=== PATIENT | male | born 1945 | race Caucasian/White ===

== ENCOUNTER → 2020-05-27 12:47 | Outpatient (CLI) | payer MEDICARE, OTHER, SELFPAY ==
--- NOTE | ~2020-05-27 | XR_ITS ---
EXAMINATION: XR chest 2V DATE: 05/27/2020 13:26 INDICATION: Shortness of breath. TECHNIQUE: Frontal and lateral views of the chest were obtained. COMPARISON: CT abdomen and pelvis 04/19/2016 FINDINGS: A calcified left lung nodule is consistent with old granulomatous disease. No pleural effus ion or pneumothorax. The heart size is normal. There are 2 chronic compression fractures in the thora cic spine with changes of vertebroplasty. IMPRESSION: 1. No acute cardiopulmonary disease. Reviewed, dictated and finalized at location A.
== END ==
PROVIDERS: PCP Physician Assistant; Visit Provider Physician Assistant
DX: R06.02 Shortness of breath (principal)
CPT/HCPCS: 71046

== ENCOUNTER → 2020-12-02 09:48 | Outpatient (CLI) | payer MEDICARE, SELFPAY ==
--- NOTE | ~2020-12-02 | XR_ITS ---
EXAMINATION: XR foot LT min 3V DATE: 12/02/2020 10:04 INDICATION: Left foot pain TECHNIQUE: Dorsoplantar, two oblique and lateral views of the left foot were obtained. COMPARISON: None. FINDINGS: Alignment is normal. No fracture. Mild polyarticular osteoarthritis at the first metatarsophalangeal and a few tarsometatarsal and interphalangeal joints. No periosteal reaction or cortical erosions. So ft tissues are unremarkable. IMPRESSION: 1. 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 Reviewed, dictated and finalized at location A. RWORKS PUMP STATION OPERATOR
== END ==
PROVIDERS: Visit Provider Physician Assistant
DX: M19.072 Primary osteoarthritis, left ankle and foot (principal)
CPT/HCPCS: 73630

== ENCOUNTER → 2021-02-24 13:16 | Outpatient (CLI) | payer MEDICARE, SELFPAY ==
--- NOTE | ~2021-02-24 | MR_ITS ---
EXAMINATION: MR lumbar spine wo con DATE: 02/24/2021 14:03 INDICATION: Low back pain. Lumbar radiculopathy. TECHNIQUE: Magnetic resonance imaging (MRI) of the lumbar spine was performed without intravenous con trast. Sequences included sagittal T2-weighted FSE, sagittal T2-weighted FS FSE, sagittal T1-weighted FSE, and axial T2-weighted FSE. COMPARISON: Lumbar spine radiographs 02/07/2021 FINDINGS: There is 12 degrees levoscoliosis of lumbar spine. There is a chronic burst fracture of T12 with changes of vertebroplasty and mild central canal stenosis. There is mildly decreased disc heigh t at L1-L2 and severely decreased disc height from L2-L3 through L5-S1 with endplate remodeling. Ther e is a hemangioma in L2 vertebral body. The distal spinal cord signal intensity is normal. The conus medullaris is at L1. The following disc levels are specifically discussed: L1-L2: The disc is bulging and has an annular fissure. There is mild bilateral facet joint osteoarthr itis. There is mild bilateral neural foraminal stenosis. There is no central canal stenosis. L2-L3: The disc is bulging and has an annular fissure. There is mild bilateral facet joint osteoarthr itis. There is moderate right and mild left neural foraminal stenosis. There is mild central canal st enosis. L3-L4: The disc is bulging and has an annular fissure. There is severe bilateral facet joint osteoart hritis. There is mild bilateral neural foraminal stenosis. There is mild central canal stenosis. L4-L5: The disc is bulging and has an annular fissure. There is severe bilateral facet joint osteoart hritis. There is moderate bilateral neural foraminal stenosis. There is mild central canal stenosis. L5-S1: The disc is bulging and has an annular fissure. There is moderate bilateral facet joint osteoa rthritis. There is mild right and moderate left neural foraminal stenosis. There is no central canal stenosis. IMPRESSION: 1. Severe lumbar spondylosis. 2. Lumbar levoscoliosis. Reviewed, dictated and finalized at location A.
== END ==
PROVIDERS: Visit Provider Nurse Practitioner Adult Health
DX: M47.26 Other spondylosis with radiculopathy, lumbar region (principal)
CPT/HCPCS: 72148

== ENCOUNTER → 2021-04-21 11:57 | Outpatient (CLI) | payer MEDICARE, SELFPAY ==
--- NOTE | ~2021-04-21 | XR_ITS ---
XR hip LT 2V w AP pelvis DATE: 04/21/2021 12:22 INDICATION: Left hip pain TECHNIQUE: AP pelvis. AP and lateral views of left hip COMPARISON: 02/2021 pelvis and left hip FINDINGS: There is levoscoliosis and prominent degenerative disc disease of the mid and lower lumbar and lumbosacral spine. Surgical clips overlie the prostate bed. The pubic symphysis and sacroiliac joints are intact. No pelvic fracture or bone destruction is detec mira. There is chondrocalcinosis of both hip joints. Mild left hip osteoarthritis. IMPRESSION: Bilateral hip joint chondrocalcinosis Mild left hip osteoarthritis Levoscoliosis and multilevel degenerative disc disease of the lumbar spine Reviewed, dictated and finalized at location B.
== END ==
PROVIDERS: PCP Family Medicine; Visit Provider Nurse Practitioner Adult Health
DX: M16.12 Unilateral primary osteoarthritis, left hip (principal); M51.36 Other intervertebral disc degeneration, lumbar region
CPT/HCPCS: 73502

== ENCOUNTER → 2022-01-03 09:41 | Outpatient (CLI) | payer MEDICARE, SELFPAY ==
--- NOTE | ~2022-01-03 | XR_ITS ---
XR knee RT 2V DATE: 01/03/2022 10:01 INDICATION: Right knee pain TECHNIQUE: Upright AP and lateral views of right knee COMPARISON: None FINDINGS: There is tricompartment osteoarthritis, most prominent at the medial and patellofemoral com partments. There is prominent chondrocalcinosis. No fracture or dislocation or joint effusion. No periosteal reaction or bone destruction. IMPRESSION: Tricompartment osteoarthritis, particularly at medial and patellofemoral compartments Prominent chondrocalcinosis Reviewed, dictated and finalized at location A. IMPRESSION: Tricompartment osteoarthritis, particularly at medial and patellofe moral compartments Prominent chondrocalcinosis
== END ==
PROVIDERS: PCP Family Medicine; Visit Provider Nurse Practitioner Adult Health
DX: M17.11 Unilateral primary osteoarthritis, right knee (principal)
CPT/HCPCS: 73560

== ENCOUNTER → 2022-06-04 10:16 | Outpatient (CLI) | payer MEDICARE, SELFPAY ==
--- NOTE | ~2022-06-04 | XR_ITS ---
XR foot RT min 3V DATE: 06/04/2022 10:35 INDICATION: Right foot pain TECHNIQUE: 4 views COMPARISON: 07/23/2019 right foot FINDINGS: Chronic indication of first metatarsal at the head. 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 There is prominent osteoarthritis at the second metatarsophalangeal joint. No fracture or dislocation, periosteal reaction or bone destruction is detected. IMPRESSION: Status post first and second digit amputations; no acute finding Prominent osteoarthritis at the second metatarsophalangeal joint Reviewed, dictated and finalized at location B.
== END ==
PROVIDERS: PCP Family Medicine; Visit Provider Physician Assistant
DX: M19.071 Primary osteoarthritis, right ankle and foot (principal)
CPT/HCPCS: 73630

== ENCOUNTER 2022-08-07 00:28 | Day surgery (SDC) | payer MEDICARE, SELFPAY ==
[2022-07-31 08:34] VITALS: BMI 23.0
[2022-08-07 08:52] VITALS: BP 125/81; PULSE 74; RESP 17; TEMP 36.2; O2SAT 98; BMI 22.6
[2022-08-07] MEDS: LACTATED RINGERS 1,000 ML 150 ML IV CONT (09:00)
--- NOTE | 2022-08-07 09:07 | P.PNAN_ITS ---
Anes - Initial Pre Proc Eval Procedure: Operation Date: 08/07/22 10:00 Proposed Procedures p Screening Colonoscopy - Clint Cortes MD Date/Time: 08/07/22 09:07 Surgeon: Clint Cortes MD Pre Op Diagnosis: Hx of colon polyps Patient Data Age: 77 Gender: M Height: 1.83 m Weight: 75.5 kg Last Vital Signs Temp 97.1 F L 08/07/22 08:52 Pulse 74 08/07/22 08:52 Resp 17 08/07/22 08:52 BP 125/81 08/07/22 08:52 Pulse Ox 98 08/07/22 08:52 O2 Del Method Room Air 08/07/22 08:52 Allergies Allergy/AdvReac Type Severity Reaction Status Date / Time No Known Allergies Allergy Verified 08/07/22 08:50 Home Medications Medication Instructions Recorded Confirmed Type lisinopril 20 mg tablet 20 mg PO DAILY #90 tabs 12/14/21 08/07/22 Rx Patient hx anesthesia problems: none Family hx anesthesia problems: none Results Review: All pre-operative results and documents have been reviewed as part of the pre- operative evaluation. [facility] Past Medical History Medical History Arthritis Arthritis of left hip Cough Dizziness MCCLENDON (dyspnea on exertion) Hoarseness of voice HTN (hypertension) Indigestion Interdigital neuroma of right foot Lumbar back pain with radiculopathy affecting left lower extremity Other spondylosis with radiculopathy, lumbar region RUQ abdominal pain Vision loss Surgical History Surgical History H/O foot surgery History of back surgery History of knee surgery S/P arthroscopy of left knee Family History Family History Father Malignant neoplasm of prostate Mother Hypertension Thyroid disorder Sibling Diabetes mellitus Social History Social History Social History: Smoking status: Never smoker Second hand tobacco smoke exposure: No Alcohol intake: never Substance use: never Substance use type: does not use Living arrangements: with family Gender identity (if verbalized by the patient): Male Sexual Orientation (if Verbalized by the Patient): Straight or Heterosexual Spiritual care concerns: No Anes - Eval Final PreProcedure Day of Procedure 08/07/22 09:07 Patient weight: normal Heart: regular rate and rhythm Lungs: clear to auscultation Airway: Mallampati scale class II Neurological: alert and oriented Last oral intake: >/= 8 hours ASA classification: II Emergent: no Anesthetic plan: proceed Anesthesia type and monitoring: general GIVS and standard monitoring Results Review: All pre-operative results and documents have been reviewed as part of the pre- operative evaluation. Informed Consent: The patient's anesthetic plan and its attendant risks and benefits were discussed with the patient/family/POA. Questions were solicited and answers provided to the satisfaction of the patient/family/POA.
--- NOTE | 2022-08-07 09:16 | PM.HPGS ---
History of Present Illness History of Present Illness Consent: Risks, benefits, and alternatives have been discussed and questions answered. Patient agrees to proceed with procedure. Chief complaint: Hx of colon polyps Narrative: Arsalan Aquino is a 77 year old male Presents for screening colonoscopy. Patient reports that his current weight appetite are normal. His bowel habits alternate between loose and solid stools. He does not notice blood on a routine basis. He denies abdominal pain. His family history is noncontributory. 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 Patient presents today for surveillance colonoscopy. Review of Systems Review of Systems: Review of systems noncontributory. [facility] Past Medical History Medical History Arthritis Arthritis of left hip Cough Dizziness MCCLENDON (dyspnea on exertion) Hoarseness of voice HTN (hypertension) Indigestion Interdigital neuroma of right foot Lumbar back pain with radiculopathy affecting left lower extremity Other spondylosis with radiculopathy, lumbar region RUQ abdominal pain Vision loss Surgical History Surgical History H/O foot surgery History of back surgery History of knee surgery S/P arthroscopy of left knee Family History Family History Father Malignant neoplasm of prostate Mother Hypertension Thyroid disorder Sibling Diabetes mellitus Social History Social History Social History: Smoking status: Never smoker Second hand tobacco smoke exposure: No Alcohol intake: never Substance use: never Substance use type: does not use Living arrangements: with family Gender identity (if verbalized by the patient): Male Sexual Orientation (if Verbalized by the Patient): Straight or Heterosexual Spiritual care concerns: No Meds Home Medications and Allergies Home Medications Medication Instructions Recorded Confirmed Type lisinopril 20 mg tablet 20 mg PO DAILY #90 tabs 12/14/21 08/07/22 Rx Allergies Allergy/AdvReac Type Severity Reaction Status Date / Time No Known Allergies Allergy Verified 08/07/22 08:50 Vital Signs Vital Signs - 24 hr 08/07/22 08:52 Temperature 97.1 F L Pulse Rate 74 Respiratory Rate 17 Blood Pressure 125/81 Pulse Oximetry 98 Oxygen Delivery Room Air Exam Narrative: Physical exam reveals patient to be alert. Vital signs stable. HEENT exam is unremarkable. Patient is anicteric. Lungs are clear to auscultation and percussion. Heart is without murmur or extra sounds. Abdomen bowel sounds present soft nontender with no organomegaly. Digital external rectal exam normal. Assessment and Plan Assessment and plan (1) History of colon polyps: Code(s): Z86.010 - Personal history of colonic polyps Status: Acute Assessment and Plan: Patient has a history of a polyp removed from the cecum in 2016. Plan for surveillance colonoscopy now. Further recommendations will be given after endoscopy. Typical follow-up would be at 5 year intervals.
[2022-08-07] MEDS: SIMETHICONE ORAL SUSPENSION 20 MG/0.3 ML 30 ML BOTTLE 0.6 ML IRRIGATION (09:58)
[2022-08-07 10:07] VITALS: BP 97/60; PULSE 75; RESP 20; O2SAT 100
[2022-08-07 10:17] VITALS: BP 119/63; PULSE 76; RESP 20; O2SAT 100
== END 2022-08-07 10:35 | disposition home or self-care (01) ==
PROVIDERS: PCP Family Medicine; Visit Provider Internal Medicine Gastroenterology
PROC: 0DJD8ZZ Inspection of Lower Intestinal Tract, Via Natural or Artificial Opening Endoscopic (ICD-10-PCS; CPT 45378; principal; 2022-08-07 10:00)
DX: Z12.11 Encounter for screening for malignant neoplasm of colon (principal); K63.5 Polyp of colon; K57.30 Diverticulosis of large intestine without perforation or abscess without bleeding; K64.8 Other hemorrhoids; I10 Essential (primary) hypertension
CPT/HCPCS: 45380; 88305; J2704; J7120

== ENCOUNTER 2022-09-21 11:12 | Outpatient (CLI) | payer MEDICARE, SELFPAY ==
[2022-09-21 11:54] LABS: Basophils Percent Auto 0.2 % (0.2-1.2); Eosinophils Percent Auto 0.6 % (0-4.4); Hematocrit 43.1 % (42.0-52.0); Hemoglobin 14.7 g/dL (14.0-18.0); Immature Granulocyte Absolute 0.03 K/mm3 (0.00-0.031); Immature Granulocyte Percent A 0.5 % (0-0.5); Lymphocytes Absolute Auto 1.02 K/mm3 (0.9-3.2); Lymphocytes Percent Auto 15.9 % (18.3-44.2); Mean Corpuscular HGB Conc 34.1 g/dl (32-36); Mean Corpuscular Hemoglobin 32.4 pg (26-34); Mean Corpuscular Volume 94.9 fl (80-100); Mean Platelet Volume 9.8 fl (7.4-10.4); Monocytes Absolute Auto 1.1 K/mm3 (0.1-0.6); Monocytes Percent Auto 16.8 % (2.6-8.5); Neutrophils Absolute Auto 4.2 K/mm3 (1.3-6.7); Platelet Count Result 227 k/mm3 (150-375); Red Blood Count 4.54 M/mm3 (4.6-6.20); Red Cell Distribution Width 12.2 % (11.5-14.5); White Blood Count 6.4 K/mm3 (4.5-10.0)
[2022-09-21 12:06] LABS: Alanine Aminotransferase 14 U/L (6-50); Alkaline Phosphatase 78 U/L (38-126); Anion Gap 4 mmol/L (8-16); Aspartate Amino Transferase 18 U/L (17-59); Bilirubin,Total 0.8 mg/dL (0.2-1.3); Blood Urea Nitrogen 14 mg/dL (9-20); Calcium 8.5 mg/dL (8.4-10.2); Carbon Dioxide 28 mmol/L (22-30); Chloride 103 mmol/L (98-107); Estimated Glomerular Filt Rate > 60; Glucose 100 mg/dL (65-110); Potassium 3.9 mmol/L (3.4-5.0); Sodium 135 mmol/L (137-145)
[2022-09-21 12:17] LABS: Troponin I < 0.012 ng/mL (0.000-0.034)
[2022-09-21 12:36] LABS: Thyroid Stimulating Hormone 0.458 uIU/mL (0.465-4.680)
== END 2022-09-21 11:13 | disposition home or self-care (01) ==
PROVIDERS: PCP Family Medicine; Visit Provider Physician Assistant
DX: R06.00 Dyspnea, unspecified (principal); I10 Essential (primary) hypertension; R07.89 Other chest pain
CPT/HCPCS: 36415; 80053; 84443; 84484; 85025

== ENCOUNTER → 2022-09-21 11:49 | Outpatient (CLI) | payer MEDICARE, SELFPAY ==
--- NOTE | ~2022-09-21 | XR_ITS ---
EXAMINATION: XR shoulder RT min 2V INDICATION: Intermittent right shoulder pain TECHNIQUE: Four views of the right shoulder are submitted. COMPARISON: 05/27/2020 FINDINGS: Normal alignment. No fracture. There is mild osteoarthritis of the glenohumeral joint. Soft tissues are unremarkable. There appear to be changes of prior distal clavicle resection IMPRESSION: 1. Mild osteoarthritis. Reviewed, dictated and finalized at location A. R WOOD SORTER IMPRESSION: 1. Mild osteoarthritis.
--- NOTE | ~2022-09-21 | XR_ITS ---
EXAMINATION: XR chest 2V DATE: 09/21/2022 12:15 INDICATION: Right shoulder pain TECHNIQUE: Frontal and lateral views of the chest are obtained COMPARISON: 05/27/2020 FINDINGS: The lungs are free of acute opacities. No pleural effusion or pneumothorax. The cardiomedia stinal silhouette is normal. There is moderate thoracic spondylosis. Vertebroplasty change is noted a t T8 and T12. IMPRESSION: 1. No acute cardiopulmonary abnormality. Reviewed, dictated and finalized at location A. HER OPERATOR
--- NOTE | ~2022-09-21 | XR_ITS ---
Lumbosacral Spine: AP and lateral views Clinical History: Pain Findings: The normal lordotic curve is maintained. Vertebroplasty cement present at T12. Mild levosco liosis lumbar spine noted. There is moderate degenerative disc narrowing throughout the lumbar spine, more advanced degenerative disc narrowing at L2-L3. The sacroiliac joints are normally outlined. Impression: No acute fracture or subluxation. Degenerative changes, as noted above. Reviewed, dictated and finalized at location [] N GEOGRAPHY INSTRUCTOR Impression: No acute fracture or subluxation. Degenerative changes, as noted above.
--- NOTE | ~2022-09-21 | XR_ITS ---
Left Shoulder Technique: AP and scapular Y views were obtained. Clinical History: Pain COMPARISON: 09/18/2018 Findings: No fracture or dislocation is seen. Osseous alignment is anatomic. There is mild AC joint d egenerative change. Glenohumeral joint preserved. Soft tissues are unremarkable. Impression: No acute abnormality. Mild AC joint degenerative change. Reviewed, dictated and finalized at location [] TRUCTION TECH Impression: No acute abnormality. Mild AC joint degenerative change.
== END ==
PROVIDERS: PCP Family Medicine; Visit Provider Physician Assistant
DX: M25.512 Pain in left shoulder (principal); M54.16 Radiculopathy, lumbar region; R07.9 Chest pain, unspecified; M19.011 Primary osteoarthritis, right shoulder
CPT/HCPCS: 71046; 72100; 73030

== ENCOUNTER → 2022-10-22 08:53 | Outpatient (CLI) | payer MEDICARE, SELFPAY ==
--- NOTE | ~2022-10-22 | MR_ITS ---
MRI of the cervical spine Clinical History: Cervical radiculopathy Technique: Axial T2-weighted and gradient images, and sagittal T1-weighted, T2-weighted, and STIR beatrice ges were acquired. Findings: No fracture or subluxation seen in the cervical spine. Vertebral bodies maintain normal hei ght and alignment. No suspicious bone marrow signal abnormality identified. At C2-C3, there is no disc bulge or herniation. No spinal canal stenosis, cord compression, or neural foraminal narrowing. At C3-C4, there is mild to moderate degenerative disc narrowing. No disc bulge or herniation evident. There is no spinal canal stenosis or cord compression. There is bilateral neural foraminal narrowing , right worse than left. At C4-C5, there is no disc bulge or herniation. There is facet arthropathy, left worse than right. No spinal canal stenosis or cord compression. There is left neural foraminal narrowing. Right neural fo ramen probably preserved. At C5-C6, there is no significant disc bulge or herniation. No spinal canal stenosis or cord compress ion. There is probable mild facet joint degenerative change with possible minimal bilateral neural fo raminal narrowing. At C6-C7, there is moderate degenerative disc narrowing without significant bulge or herniation. No s sunday canal stenosis or cord compression. Probable mild bilateral neural foraminal narrowing. Paravertebral soft tissues are unremarkable. Impression: Mild degenerative spondylosis, with multilevel neural foraminal narrowing, as detailed above. No boris k spinal canal stenosis or cord compression. Reviewed, dictated and finalized at [facility]. COORDINATOR Impression: Mild degenerative spondylosis, with multilevel neural foraminal narrowing, as d etailed above. No may spinal canal stenosis or cord compression.
== END ==
PROVIDERS: PCP Family Medicine; Visit Provider Nurse Practitioner Family
DX: M54.12 Radiculopathy, cervical region (principal); M43.02 Spondylolysis, cervical region
CPT/HCPCS: 72141

== ENCOUNTER 2022-11-02 14:06 | Outpatient (CLI) | payer MEDICARE, SELFPAY ==
[2022-11-02 15:40] LABS: Free T4 Free Thyroxine 1.25 ng/mL (0.78-2.19)
== END 2022-11-02 14:07 | disposition home or self-care (01) ==
PROVIDERS: PCP Family Medicine; Visit Provider Physician Assistant
DX: E03.9 Hypothyroidism, unspecified (principal); R79.89 Other specified abnormal findings of blood chemistry
CPT/HCPCS: 36415; 84439; 84443

== ENCOUNTER → 2023-04-15 10:22 | Outpatient (CLI) | payer MEDICARE, SELFPAY ==
--- NOTE | ~2023-04-15 | XR_ITS ---
Clinical Indication: Dyspnea PA and lateral views of the chest: Comparison: 09/21/2022 Findings: Stable calcified left upper lobe granuloma. The lungs are otherwise clear, without evidence of focal consolidation or pleural effusion. Cardiomediastinal silhouette is within normal limits. S table vertebroplasty cement at the mid thoracic spine. Impression: No acute abnormality. Reviewed, dictated and finalized at location M. Impression: No acute abnormality.
== END ==
PROVIDERS: PCP Family Medicine; Visit Provider Physician Assistant
DX: R06.09 Other forms of dyspnea (principal)
CPT/HCPCS: 71046

== ENCOUNTER 2023-04-19 12:31 | Outpatient (CLI) | payer MEDICARE, SELFPAY ==
--- NOTE | ~2023-04-19 | US_ITS ---
EXAMINATION: US carotid duplex BI DATE: 04/19/2023 14:15 INDICATION: Dizziness and giddiness. TECHNIQUE: Grayscale, color Doppler, and pulsed Doppler images of the cervical carotid arteries were obtained. The degree of vessel stenosis is placed in one of the following categories: normal, <50%, 5 0-69%, >=70% but less than near-occlusion, near-occlusion, or total occlusion. Note that percent sten osis relative to normal distal artery lumen diameter is indirectly measured from velocity measurement s as described by Saran, et al. Radiology 2003; 229:[id number]. COMPARISON: None. FINDINGS: RIGHT: The right common carotid artery (CCA) peak systolic velocity (PSV) is 85 cm/s. The right internal car otid artery (ICA) PSV is 72 cm/s. The right ICA end-diastolic velocity (EDV) is 27 cm/s. The right IC A/CCA PSV ratio is 0.8. Grayscale and color Doppler images yield an estimate of <50% diameter reducti on from plaque in the ICA. There is antegrade flow in the right vertebral artery. LEFT: The left CCA PSV is 86 cm/s. The left ICA PSV is 64 cm/s. The left ICA EDV is 28 cm/s. The left ICA/C CA PSV ratio is 0.7. Grayscale and color Doppler images yield an estimate of <50% diameter reduction from plaque in the ICA. There is antegrade flow in the left vertebral artery. IMPRESSION: 1. <50% stenosis in the right internal carotid artery. 2. <50% stenosis in the left internal carotid artery. Reviewed, dictated and finalized at location E.
== END 2023-04-19 12:32 | disposition home or self-care (01) ==
PROVIDERS: PCP Family Medicine; Visit Provider Physician Assistant
DX: R42 Dizziness and giddiness (principal); R06.09 Other forms of dyspnea; I65.23 Occlusion and stenosis of bilateral carotid arteries
CPT/HCPCS: 93880

== ENCOUNTER → 2023-12-04 11:02 | Outpatient (CLI) | payer MEDICARE, SELFPAY ==
--- NOTE | ~2023-12-04 | MR_ITS ---
EXAMINATION: MR lumbar spine wo con DATE: 12/04/2023 11:29 INDICATION: Lumbar radiculopathy TECHNIQUE: Magnetic resonance imaging (MRI) of the lumbar spine was performed without intravenous con trast. Sequences included sagittal T2-weighted FSE, sagittal T2-weighted FS FSE, sagittal T1-weighted FSE, and axial T2-weighted FSE. COMPARISON: 02/24/2021 FINDINGS: 15 degree lumbar levoscoliosis. Chronic T12 burst fracture with prior vertebroplasty. Remaining verte bral body heights are normal. Severe disc height loss with right-sided predominance and without assoc iated fibrovascular degenerative endplate changes at L2-L3 through L4-L5. Moderate to severe disc hei ght loss at L5-S1. Mild disc height loss at T10-T11 and L1-L2. T1 and T2 hyperintense hemangiomas, th e larger at the left side of L2 and the smaller at the right side of L3. The conus medullaris termina alina at L1. There is normal signal in the caudal spinal cord. Paravertebral soft tissues are unremarka ble. The following disc levels are specifically discussed: T10-T11: Disc is bulging. There is moderate to severe bilateral facet joint osteoarthritis. There is hypertrophy of the ligamentum flavum. There is moderate bilateral neural foraminal stenosis. There is mild central canal stenosis. T11-T12: Disc is bulging and there is 3 mm retropulsion of the central margin of the superior endplat e of T12. There is severe bilateral facet joint osteoarthritis. There is hypertrophy of the ligamentu m flavum. There is mild bilateral neural foraminal stenosis. There is mild central canal stenosis. T12-L1: Small central disc protrusion. There is moderate bilateral facet joint osteoarthritis. There is hypertrophy of the ligamentum flavum. There is mild bilateral neural foraminal stenosis. There is mild central canal stenosis. L1-L2: Disc is bulging with annular fissure. There is mild bilateral facet joint osteoarthritis. Ther e is mild to moderate bilateral neural foraminal stenosis. There is mild central canal stenosis. L2-L3: Posterior disc osteophyte complex with annular fissure. There is mild left and moderate right facet joint osteoarthritis. There is hypertrophy of the ligamentum flavum. There is mild left and mo derate right neural foraminal stenosis. There is mild central canal stenosis. L3-L4: Posterior disc osteophyte complex with annular fissure. There is mild left and moderate right facet joint osteoarthritis. There is mild left and moderate right neural foraminal stenosis. There is mild central canal stenosis. L4-L5: Disc is bulging with annular fissure. There is moderate left and severe right facet joint oste oarthritis. There is moderate bilateral neural foraminal stenosis. There is mild central canal stenos is. L5-S1: Disc is bulging with annular fissure. There is moderate bilateral facet joint osteoarthritis. There is moderate left and mild to moderate right neural foraminal stenosis. There is no central john l stenosis. IMPRESSION: 1. 15 degrees lumbar levoscoliosis with negligible change in severe spondylosis. 2. Chronic T12 burst fracture with prior vertebroplasty. Reviewed, dictated and finalized at location B. CTION OPERATOR IMPRESSION: 1. 15 degrees lumbar levoscoliosis with negligible change in severe spondylosis . 2. Chronic T12 burst fracture with prior vertebroplasty.
== END ==
PROVIDERS: PCP Family Medicine; Visit Provider Nurse Practitioner Family
DX: M47.26 Other spondylosis with radiculopathy, lumbar region (principal); S22.081D Stable burst fracture of T11-T12 vertebra, subsequent encounter for fracture with routine healing; X58.XXXD Exposure to other specified factors, subsequent encounter
CPT/HCPCS: 72148

== ENCOUNTER 2024-02-05 09:39 | Outpatient (CLI) | payer MEDICARE, SELFPAY ==
--- NOTE | 2024-02-05 09:46 | EST_ITS ---
Patient Info Name: Arsalan Aquino Age: 78 years : 1945 Gender: Male Ht: 72 in Wt: 168 lbs BSA: 1.97 m2 HR: 71 bpm BP: 137 / 86 mmHg Heart Rhythm: Sinus Rhythm Exam Date: 02/05/2024 9:58 AM Exam Location: Echo Lab Patient Status: Outpatient Admit Date: 02/05/2024 Staff Ordering Physician: Steff Moreno PA-C Attending Provider: Steff Moreno PA-C Exercise Technologist: Cathi Gee CT Exercise Physician: Tres Duron DO Exam Type: CA stress test treadmill Study Info Indications R42 - Dizziness and giddiness R06.09 - Other forms of dyspnea A treadmill exercise stress test was performed. Summary 1. 1. Negative Dilshad exercise stress test for ischemic ST changes by ECG criteria. 2. 2. Good functional capacity, achieving 8 METs of workload. 3. 3. Appropriate HR response to exercise. 4. 4. Appropriate HR recovery at 1 minute post exercise. 5. 5. No imaging with stress testing. 6. 6. Patient informed of the above results. Protocol: Dilshad Stress ECG Details Stage: REST Duration (min): 1 min : 19 sec Speed (mph): 0.0 Grade (%): 0 HR (bpm): 69 SBP (mmHg): 137 DBP (mmHg): 86 METS: --- Stage: REST Duration (min): 5 min : 29 sec Speed (mph): 0.0 Grade (%): 0 HR (bpm): 76 SBP (mmHg): 137 DBP (mmHg): 86 METS: --- Stage: STAGE 1 Duration (min): 1 min : 0 sec Speed (mph): 1.7 Grade (%): 10 HR (bpm): 94 SBP (mmHg): 137 DBP (mmHg): 86 METS: --- Stage: STAGE 1 Duration (min): 2 min : 0 sec Speed (mph): 1.7 Grade (%): 10 HR (bpm): 104 SBP (mmHg): 137 DBP (mmHg): 86 METS: --- Stage: STAGE 1 Duration (min): 3 min : 0 sec Speed (mph): 1.7 Grade (%): 10 HR (bpm): 100 SBP (mmHg): 165 DBP (mmHg): 93 METS: --- Stage: STAGE 2 Duration (min): 1 min : 0 sec Speed (mph): 2.5 Grade (%): 12 HR (bpm): 109 SBP (mmHg): 165 DBP (mmHg): 93 METS: --- Stage: STAGE 2 Duration (min): 2 min : 0 sec Speed (mph): 2.5 Grade (%): 12 HR (bpm): 118 SBP (mmHg): 184 DBP (mmHg): 88 METS: --- Stage: STAGE 2 Duration (min): 3 min : 0 sec Speed (mph): 2.5 Grade (%): 12 HR (bpm): 122 SBP (mmHg): 184 DBP (mmHg): 88 METS: --- Stage: STAGE 3 Duration (min): 0 min : 30 sec Speed (mph): 3.4 Grade (%): 14 HR (bpm): 128 SBP (mmHg): 184 DBP (mmHg): 88 METS: --- Stage: RECOVERY Duration (min): 0 min : 29 sec Speed (mph): 0.0 Grade (%): 0 HR (bpm): 124 SBP (mmHg): 178 DBP (mmHg): 72 METS: --- Stage: RECOVERY Duration (min): 1 min : 29 sec Speed (mph): 0.0 Grade (%): 0 HR (bpm): 96 SBP (mmHg): 178 DBP (mmHg): 72 METS: --- Stage: RECOVERY Duration (min): 2 min : 29 sec Speed (mph): 0.0 Grade (%): 0 HR (bpm): 95 SBP (mmHg): 178 DBP (mmHg): 72 METS: --- Stage: RECOVERY Duration (min): 3 min : 5 sec Speed (mph): 0.0 Grade (%): 0 HR (bpm): 87 SBP
== END 2024-02-05 09:40 | disposition home or self-care (01) ==
PROVIDERS: PCP Family Medicine; Visit Provider Physician Assistant Medical
DX: R06.09 Other forms of dyspnea (principal); R42 Dizziness and giddiness
CPT/HCPCS: 93017

== ENCOUNTER 2024-03-11 07:44 | Outpatient (CLI) | payer MEDICARE, SELFPAY ==
--- NOTE | ~2024-03-11 | MR_ITS ---
MRI of the left shoulder Technique: Axial proton-density fat-sat images, coronal proton density fat-sat and T2 fat-sat images, and sagittal T1-weighted and T2 fat-sat images were acquired. Clinical History: Pain Findings: There is moderate AC joint degenerative change, mildly productive change at the distal clav icle and acromion. Small subacromial spur present. Coracoclavicular, coracoacromial, and coracohumera l ligaments appear intact. There is a 1.8 x 1.7 cm full-thickness tear at the distal, anterior to central portion of the suprasp inatus tendon. There is background moderate to advanced supraspinatus tendinosis. Infraspinatus tendo n is intact, without partial or full-thickness tear. Subscapularis tendon is intact with mild tendino sis. Probable complete rupture of the proximal long head biceps tendon, which is retracted to the bic ipital groove. Questionable degenerative tear of the superior labrum. Inferior glenohumeral ligament is intact. No significant degenerative change or effusion of the gleno humeral joint. No muscle atrophy or edema. Impression: 1.8 x 1.7 cm full-thickness tear at the anterior central portion of the distal supraspinatus tendon. Background rotator cuff tendinosis, as above. Complete rupture of the proximal long head biceps tendon, with retraction into the bicipital groove. Questionable degenerative tear superior labrum. Moderate AC joint degenerative change. Reviewed, dictated and finalized at [facility]. Impression: 1.8 x 1.7 cm full-thickness tear at the anterior central portion of the distal supraspinatus tendon. Background rotator cuff tendinosis, as above. Complete rupture of the proximal long head biceps tendon, with retraction into the bicipital groove. Questionable degenerative tear superior labrum. Moderate AC joint degenerative change.
== END 2024-03-11 07:45 ==
LOC: MICIMG 07:44
PROVIDERS: PCP Family Medicine; Visit Provider Physician Assistant
DX: S46.212A Strain of muscle, fascia and tendon of other parts of biceps, left arm, initial encounter (principal); M19.012 Primary osteoarthritis, left shoulder; X58.XXXA Exposure to other specified factors, initial encounter
CPT/HCPCS: 73221

== ENCOUNTER 2024-07-14 08:53 | Outpatient (CLI) | payer MEDICARE, SELFPAY ==
--- NOTE | 2024-07-14 09:15 | ECG_ITS ---
Test Date: 2024-07-14 09:19:20 Measurements Intervals Badger Rate: 61 P: 53 DC: 211 QRS: -27 QRSD: 102 T: -1 QT: 402 QTc: 407 Interpretive Statements SINUS RHYTHM WITH FIRST DEGREE AV BLOCK LEFT AXIS DEVIATION [QRS AXIS < -20] ABNORMAL ECG No previous ECG available for comparison Electronically Signed On 07-15-2024 06:58:12 CDT by Leandro Parker M.D.
== END 2024-07-14 08:54 | disposition home or self-care (01) ==
PROVIDERS: PCP Family Medicine; Visit Provider Orthopaedic Surgery
DX: I10 Essential (primary) hypertension (principal); Z01.818 Encounter for other preprocedural examination
CPT/HCPCS: 93005

== ENCOUNTER 2024-07-17 03:56 | Day surgery (SDC) | payer MEDICARE, SELFPAY ==
--- NOTE | 2024-07-13 14:38 | PC.NURSE ---
Report to the Outpatient Waiting Room, entrance under the green pavilion located off [facility], at time 10 AM on date 07/17/24 . Planned Procedure Time: _1200 NOON .? Time changes happen often and if your time is changed the preop area will call you the afternoon before. - You and your visitor will be asked to self-screen and do not enter if you have any COVID symptoms. Please call surgeon if you need to reschedule. - A mask is optional within the hospital at this time. Patients may have clear liquids (water, carbonated beverages, clear teas, apple juice) until 3 hours prior to surgery( 9 AM) with a maximum of 20 ounces. - No food from midnight until time of surgery and no smoking - Infants may have breast milk until 4 hours before surgery, infant formula 6 hours prior to surgery. - Children will be allowed to drink immediately following surgery.? If applicable, please bring a bottle or sippy cup to assist with drinking. Juice, water, soda, and popsicles are readily available.? For infants on formula, please bring formula the day of surgery.? Pacifiers are allowed. Take only the following medications with a SIP of water on the morning of surgery: __NONE DO NOT STOP ANY OF YOUR OTHER PRESCRIPTION MEDICATIONS PRIOR TO SURGERY EXCEPT THE FOLLOWING Medications to discontinue per physician ____HOLD IBUPROFEN 7 DAYS PRE OP PER DR LAWRENCE.LAST DOSE 07/09/24. MAY TAKE TYLENOL IF NEEDED FOR PAIN Please no make-up, nail romanian, hairspray, perfume, deodorant, or body powder the day of surgery.? No jewelry (including any body piercings) or valuables the day of surgery, leave them at home.? Please take a shower or bath the night before, or the morning of, surgery with an antibacterial soap.? Wear comfortable, loose fitting clothing.? Children are encouraged to wear pajamas. - Jewelry must be removed prior to entering the operating room.? Rings and piercings that are not removed may be cut off. - The hospital will not accept responsibility for valuables.? - Please leave all valuables, including medications, at home the day of surgery. If you are going home after surgery, a licensed sales route driver must drive you home.? - NO public transportation without another adult if you receive anesthesia. - We recommend that an adult stay with you for 24 hours following discharge. - We also recommend that you do not drive, make important decision, drink alcoholic beverages, or take any drugs that were not prescribed by your health care provider for at least 24 hours after your discharge time. Follow any additional instructions given to you from your surgeon. Telephone instructions given to _PATIENT and asked if any additional questions and then verbalized understanding. Patient advised to call surgeon office or pre surgery nurse liaison [phone] if any additional questions.
[2024-07-13 14:48] VITALS: BMI 22.8
[2024-07-17] VITALS (13 sets, daily range): BP systolic 107–165; BP diastolic 59–98; PULSE 50–66; RESP 10–21; TEMP 36.3–36.7; O2SAT 96–100
--- NOTE | 2024-07-17 10:16 | WPDANESEPPF ---
Anes - Initial Pre Proc Eval Procedure: Operation Date: 07/17/24 12:00 Proposed Procedures p Left Shoulder Arthroscopic Rotator Cuff Repair with Subacromial Decompression - Renato Bautista MD Date/Time: 07/17/24 10:16 Surgeon: Renato Bautista MD Pre Op Diagnosis: Complete Left Rot Cuff Tear Patient Data Age: 79 Gender: M Height: 1.83 m Weight: 76.2 kg Allergies Allergy/AdvReac Type Severity Reaction Status Date / Time No Known Allergies Allergy Verified 07/17/24 10:14 Home Medications Medication Instructions Recorded Confirmed Type lisinopril 10 mg tablet See Rx Instructions .Route 05/08/24 07/17/24 Rx .COMPLEX #90 tabs ibuprofen 200 mg tablet (Advil) 400 mg PO Q6H PRN Pain 07/13/24 07/17/24 History Patient hx anesthesia problems: none Family hx anesthesia problems: none Results Review: All pre-operative results and documents have been reviewed as part of the pre-operative evaluation. [facility] Past Medical History Medical History (Updated 07/17/24 @ 10:18 by Gokul Sosa DO) Arthritis Arthritis of left hip Cough Dizziness MCCLENDON (dyspnea on exertion) Hoarseness of voice HTN (hypertension) Indigestion Interdigital neuroma of right foot Lumbar back pain with radiculopathy affecting left lower extremity Other spondylosis with radiculopathy, lumbar region Prostate cancer radiation tx only 2018 RUQ abdominal pain Vision loss Surgical History Surgical History (Updated 07/17/24 @ 10:18 by Gokul Sosa DO) H/O foot surgery History of back surgery History of knee surgery History of mandibular surgery S/P arthroscopy of left knee Family History Family History Father Malignant neoplasm of prostate Mother Hypertension Thyroid disorder Sibling Diabetes mellitus Social History Social History Social History: Smoking status: Never smoker Second hand tobacco smoke exposure: No Alcohol intake: never Substance use: never Substance use type: does not use Do You Feel Safe in your Home?: Yes Lack of Transportation: No Lack of Food: Never True Current Housing: I Have Housing Concerned About Future Housing: No Difficulty Paying Gas/Electric Bills: No Difficulty Paying for Meds: No Currently Unemployed: YES Education: Don't Know Difficulty w/ Childcare or Family Care: No Living arrangements: with family Occupation/Education: retired Gender identity (if verbalized by the patient): Male Sexual Orientation (if Verbalized by the Patient): Straight or Heterosexual Spiritual care concerns: No Anes - Eval Final PreProcedure Day of Procedure 07/17/24 10:16 Patient weight: normal Heart: regular rate and rhythm Lungs: clear to auscultation Airway: Mallampati scale class 1 Neurological: alert and oriented Last oral intake: >/= 8 hours ASA classification: II Emergent: no Anesthetic plan: proceed Anesthesia type and monitoring: general ETT and standard monitoring Results Review: All pre-operative results and documents have been reviewed as part of the pre-operative evaluation. Informed Consent: The patient's anesthetic plan and its attendant risks and benefits were discussed with the patient/family/POA. Questions were solicited and answers provided to the satisfaction of the patient/family/POA.
[2024-07-17] MEDS: ACETAMINOPHEN 500 MG TABLET 1000 MG PO (10:20)
[2024-07-17] MEDS: LACTATED RINGERS 1,000 ML 30 ML IV CONT ×2 (10:53→14:11)
[2024-07-17] MEDS: KETOROLAC 15 MG/ML VIAL (*BKC) IV PUSH (11:12)
--- NOTE | 2024-07-17 11:25 | WPDHPUPDATE1 ---
History and Physical Update Update Date/Time: 07/17/24 11:25 History and Physical has been reviewed, including an updated exam of the patient. There are NO changes in the patient's condition. Risks, benefits, and alternatives have been discussed and questions answered. Patient agrees to proceed with procedure.
[2024-07-17] MEDS: ceFAZolin 2 GM/D5W 50 ML 2 GM/50 ML BAG IVPB (12:07)
[2024-07-17] MEDS: BUPIVACAINE/EPINEPHRINE 0.5% 10 ML VIAL 30 ML INFILTRATE (12:57)
[2024-07-17] MEDS: fentaNYL CITRATE INJ (*CRX) 100 MCG/2 ML VIAL 25 MCG IV PUSH ×4 (14:52→15:13)
--- NOTE | 2024-07-17 15:37 | P.OP_ITS ---
Procedure Note - Detailed Date of Procedure 07/17/24 Pre-op Diagnosis Left shoulder 1. Full-thickness rotator cuff tear 2. Subacromial impingement. Post-op Diagnosis Other (1. Full-thickness Rotator cuff tear 2. Subacromial impingement 3. Degenerative posterior labral tear) Procedure Performed Left shoulder 1. Arthroscopic rotator cuff repair 2. Arthroscopic subacromial decompression 3. Arthroscopic labral debridement Surgeon Renato Bautista MD Instrument Repair Supervisor Zoe Martin PA-C Anesthesia General and Regional ( interscalene block) Findings Full-thickness moderately retracted supraspinatus tear. Partial-thickness tear extending into the infraspinatus. The tear was partially mobile from anterior to posterior. The biceps was absent. The articular cartilage was healthy but the posterior labrum had a significant tear. There was cystic fluid behind the labrum noted on the MRI. The labrum was debrided with the radiofrequency probe and arthroscopic shaver. The rotator cuff was repaired with 2 bone tunnels and a rip stop technique utilizing 6 sutures. Subacromial decompression performed due to clear evidence of external impingement. Description of Procedure Preoperative antibiotics were given. An interscalene block was administered in the preoperative area. The patient was bought brought to the operating room. A general anesthetic was administered. The patient was carefully positioned in the beach chair position. The head and neck were carefully positioned. The non operative extremity was also carefully positioned. The shoulder was prepped and draped in the usual sterile fashion. Examination was performed. Standard posterior and anterior arthroscopic portals were established. Inflow achieved with the arthroscopic pump using saline and epinephrine. The glenohumeral joint was carefully inspected. The articular cartilage was healthy. The biceps was however chronically ruptured. The posterior labrum had a significant flap tear which was nicely debrided and the remaining tissue appeared quite healthy.. Attention was turned to the subacromial space. A complete bursectomy was performed. The tear configuration was carefully assessed. At this point, 2 tunnels were created at the rotator cuff. Three sutures were passed through each tunnel. All sutures were then passed through the cuff tissue. A rip stop technique was utilized. The sutures were tied arthroscopically. The arthros copic instruments were removed. The wounds were closed with 4-0 Monocryl subcuticular suture and steri strips. There were no complications. A sling was applied and the patient brought to the recovery room. Physician claims assistant, Zoe Martin PA-C, required for surgery; including patient positioning, draping, arthroscopic camera operation, maintaining instrument position, suture retrieval, wound closure, and dressing and sling placement. Estimated Blood Loss 5 Pathology None sent Complications No immediate complications Condition Stable Disposition PACU [facility] Billing Surgery - Charge Forward: Surgery Billing
--- NOTE | 2024-07-17 15:42 | WPDHPUPDATE1 ---
History and Physical Update Update Date/Time: 07/17/24 15:42 History and Physical has been reviewed, including an updated exam of the patient. There are NO changes in the patient's condition. Risks, benefits, and alternatives have been discussed and questions answered. Patient agrees to proceed with procedure.
--- NOTE | 2024-07-17 15:49 | WPDANESPNB ---
Anes - Peripheral Nerve Block Date/Time: 07/17/24 15:49 I have discussed with the patient/family/POA the placement of a peripheral nerve block for post-operative pain management, including associated risks, benefits, complications, and side effects. Alternative methods of post-operative analgesia were detailed. Questions were solicited and answers provided to the satisfaction of the patient/family/POA. Time-Out: A pre-procedural Time-Out was completed immediately before starting the procedure and confirmed: Patient Identification, Site, Procedure, Patient Position and the Availability of Requisite Equipment. Clinical Indications: Acute post-operative pain management requested by the operative surgeon. Nerve Block Insertion Note Anes-nerve block: interscalene left Patient position: supine Skin prep: chlorhexidine Needle: 22 gauge, stimulating, insulated echogenic needle. Needle length: 50 mm Technique: ultrasound Injectate: bupivacaine 0.5% with epi 5 mcg/ml (20cc- no epi) Observations: tolerated well Complications: none Procedure start time:: 154 Procedure end time:: 1543
[2024-07-17] MEDS: ONDANSETRON INJ 4 MG/2 ML VIAL IV PUSH (16:35)
== END 2024-07-17 17:20 | disposition home or self-care (01) ==
PROVIDERS: PCP Family Medicine; Visit Provider Orthopaedic Surgery
PROC: (CPT 29805; principal; 2024-07-17 12:00)
DX: S46.012A Strain of muscle(s) and tendon(s) of the rotator cuff of left shoulder, initial encounter (principal); M75.42 Impingement syndrome of left shoulder; M75.82 Other shoulder lesions, left shoulder; X50.0XXA Overexertion from strenuous movement or load, initial encounter; Y93.73 Activity, racquet and hand sports; G89.18 Other acute postprocedural pain; I10 Essential (primary) hypertension; Z85.46 Personal history of malignant neoplasm of prostate; Z92.3 Personal history of irradiation
CPT/HCPCS: 29827; 29826; 64415; 93005; A4565; A9270; J0330; J0690; J1100; J1171; J1885; J2003; J2250; J2405; J2704; J3010; J7120

== ENCOUNTER 2024-10-05 12:30 | Outpatient (RCR) | payer MEDICARE, SELFPAY ==
[2024-08-28 12:35] VITALS: BP_SYST 115
--- NOTE | 2024-08-28 13:24 | OPREHPOC ---
Outpatient Therapy Plan of Care This is a Multidisciplinary Plan of Care that may contain components documented by all disciplines (PT, OT, and ST.) PT Problem 1 PT Problem #1 Knowledge Deficit PT Goal 1 Goal / Goal Update *indep with HEP Target Visit 10 PT Problem 2 PT Problem #2 Pain PT Goal 1 Goal / Goal Update 1* pt report pain rating at worst of 2/10 2* pt report with sleeping, awaken 1x/night due to shoulder pain 3* self assessment Quick DASH rating of 35% limitation in activity level Target Visit 10 PT Problem 3 PT Problem #3 Impaired Strength PT Goal 1 Goal / Goal Update increase strength of L shoulder, to increase use of L arm with self care and recreational activities: in standing, 5 reps L shoulder: 1* flexion to 140' with 2# hand wt 2* abduction to 120' 3* IR- reach behind back, palm to above waist 4* ER - reach to back of head with palm Target Visit 10
--- NOTE | 2024-08-28 13:24 | PTOPEVAL1 ---
Assessment and note entered by Wendy Cuello, PT Evaluation Information Assessment Status Evaluation ICD-10 Condition Codes (PT) M25.512,Z47.89 Onset 07-17-24 Subjective Information s/p L rotator cuff repair on 07-17-24; after surgery, used shoulder sling for 6 weeks; saw this AM and he was pleased with how he was doing; did not give any restrictions to pt. 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; active lifestyle and walk regularly; Reported Pain Level Pain Score Self Report Additional Pain Score Comments pain range in the past week 1-01/14; anterior shoulder; sometime pain into elbow increase pain with using L arm decrease pain: rest arm, take advil PRN- about every 3 days; with sleeping, awaken with pain 3-4 x/night; used ice post op, but not lately; tends to use heat over shoulder; reinforced use PRN ice for increase activity and swelling over shoulder Assessment PT Clinical Summary Arsalan is s/p L shoulder arthroscopy--rotator cuff repair, subacromial decompression and labral debridement on 07-17-24. Prior to surgery, he was active, played pickle ball and did all yardwork and has farm animals that he cares for. Self assess Quick DASH rating of 64% limitation in activity level. Reports his shoulder pain is less, but still awakens him from sleeping. He is ambidextrous, plays pickle ball with L hand. With the evaluation: active L shoulder: flexion 100', abduction 85', IR- reaching behind back, palm to waist and ER- reaching to back of head, palm to behind ear; abduction is the most painful motion. He has rounded shoulder posture with forward head. Skilled PT services are indicated for modalities PRN for pain, therapeutic exercises to increase L shoulder ROM and strength with education for HEP and posture correction. Plan of Care Interventions Electrical Stimulation,Hot Pack/Cold Pack,Manual Therapy,Neuro Re-education,Patient Education,Therapeutic Activities,Therapeutic Exercise,Ultrasound,Other Other Interventions taping PT Services Indicated Yes Treatment Frequency and 2x/wk for 10 visits Duration These treatments will address the objective and functional deficits as defined above. The patient will be advanced safely and appropriately in order for the patient to progress towards his/her prior level of function. Additional exercises will be introduced and as well as a comprehensive home exercise program upon discharge, if needed, ?to ensure carryover of functional gains achieved in the clinic. This treatment plan has been reviewed and agreement upon by the patient.
[2024-10-05 12:35] VITALS: BP_SYST 155
--- NOTE | 2024-10-05 13:24 | PTOPDC ---
Assessment and note entered by Wendy Cuello, PT Assessment Status Discharge ICD-10 Condition Codes (PT) Pain in left shoulder M25.512,Encounter for other orthopedic aftercare Z47.89 Onset 07-17-24 Subjective Information shoulder is doing good; have been using arm and doing things at home--get rodriguez of hay for animals lifting and putting away Deuce decorations; not played pickle ball; do not have follow up appointment with dr for shoulder; Reported Pain Level Pain Score Self Report Additional Pain Score Comments pain range in the past week 0-2/10; increase pain: end of day and with more activity with sleeping when lie on L side is sore, but shoulder pain does not wake him up; Assessment PT Clinical Summary Arsalan has received 10 PT sessions. He reports he has returned to everything but playing pickle ball With today's reassessment: pain 0-2/10; self assessment Quick DASH rating of 9% limitation in activity level; active ROM of L shoulder: flexion 145', abduction 140'; IR- reach behind back, palm to above waist; ER- fingers to neck with reaching behind head. Strength: L shoulder with use of 3# hand wt: flexion and abduction;elbow flexion/extension 10#; bilateral UE lifting box from waist to floor height 50#, 3 reps, without shoulder pain. And used good body mechanics. Education completed for HEP, progression of activity as tolerated, with monitoring of pain. The goals were achieved. Discharge PT services. He is to continue with his HEP and activity as tolerated. Plan of Care PT Services Indicated No
== END 2024-10-05 14:27 | disposition home or self-care (01) ==
LOC: ANHPT 12:30
PROVIDERS: PCP Family Medicine; Visit Provider Orthopaedic Surgery
DX: Z47.89 Encounter for other orthopedic aftercare (principal); Z98.890 Other specified postprocedural states
CPT/HCPCS: 97110; 97140; 97161; 97530

== ENCOUNTER 2025-03-04 14:18 | Outpatient (CLI) | payer MEDICARE, SELFPAY ==
--- NOTE | ~2025-03-04 | MR_ITS ---
MRI of the left shoulder Technique: Axial proton-density fat-sat images, coronal proton density fat-sat and T2 fat-sat images, and sagittal T1-weighted and T2 fat-sat images were acquired. Clinical History: Rotator cuff tear COMPARISON: 03/11/2024 Findings: Moderate AC joint degenerative change is essentially stable from prior exam. Coracoclavicul ar, coracoacromial, and coracohumeral ligaments are intact. Probable interval rotator cuff repair surgery. Suture anchor noted at the humeral head. Infraspinatus tendon is intact, with moderate tendinosis. Distal supraspinatus tendon is markedly hyperintense and poorly defined, which could reflect postoperative change versus possibly recurrent full-thickness te ar with macerated tendon substance. There are abnormality measures approximately 2.4 x 1.6 cm in exte nt. Subscapularis tendon is intact with mild tendinosis. Status post presumed interval biceps tenodes is. No definite labral tear seen. There is minimal degenerative change of the glenohumeral joint. Inferior glenohumeral ligament is int act. No joint effusion present. There is small amount of fluid in the subacromial/subdeltoid bursa. N o muscle atrophy or edema. Impression: Prior rotator cuff repair surgery. Possible recurrent full-thickness tearing of the supraspinatus ten don versus postoperative appearance of the tendon. MR arthrogram advised to better confirm or exclude full-thickness tear. Status post probable biceps tenodesis. Stable moderate AC joint degenerative change. Reviewed, dictated and finalized at [facility]. Impression: Prior rotator cuff repair surgery. Possible recurrent full-thickness tearing of the supraspinatus tendon versus postoperative appearance of the tendon. MR art hrogram advised to better confirm or exclude full-thickness tear. Status post probable biceps tenodesis. Stable moderate AC joint degenerative change.
== END 2025-03-04 14:19 | disposition home or self-care (01) ==
LOC: MICIMG 14:19
PROVIDERS: PCP Family Medicine; Visit Provider Orthopaedic Surgery
DX: M75.102 Unspecified rotator cuff tear or rupture of left shoulder, not specified as traumatic (principal); M19.012 Primary osteoarthritis, left shoulder
CPT/HCPCS: 73221